=== PATIENT | female | born 1950 | race Two or more races ===

== ENCOUNTER 2021-03-30 12:15 | Inpatient (IN) | payer OTHER ==
[~2021-03-30] VITALS: Ht 154.9 cm; Wt 108.9 kg
[~2021-03-30 12:15] MED LIST: ALOPURINOL; CYMBALTA60 MG PO; DIOVAN320 MG PO; GABAPENTIN100 MG PO; GLUMETZA1000 MG PO; HUMALOG100 U/M1 SQ; OMEPRAZOLE40 MG PO; SIMCOR 500-201 EACH PO; SYNTHROID75 MCG PO; TOPROL XL100 M1 PO
[2021-03-30] MEDS ORDERED: LEVO-T75 MCG PO (14:19)
[2021-03-30] MEDS ORDERED: ISOSORBIDE DINI30 MG PO (14:20)
[2021-03-30] MEDS ORDERED: GABAPENTIN800 M1 PO (14:20)
[2021-03-30] MEDS ORDERED: TOPROL XL50 M1 PO (14:20)
[2021-03-30] MEDS ORDERED: XARELTO20 MG PO (14:21)
[2021-03-30] MEDS ORDERED: ALLOPURINOL300 MG PO (14:21)
[2021-03-30] MEDS ORDERED: LIPITOR40 M1 PO (14:22)
[2021-03-30] MEDS ORDERED: LANTUS SOL100 UNIT/1 (14:29)
[2021-03-30] MEDS ORDERED: ONGLYZA5 MG PO (14:29)
[2021-03-30] MEDS ORDERED: CLONAZEPAM0.5 MG PO (14:30)
[2021-04-04] MEDS ORDERED: NEURONTIN800 MG PO (14:05)
[2021-04-04] MEDS ORDERED: MEDROLPACK PO (14:05)
[2021-04-04] MEDS ORDERED: AMOX-CLAV 875-1 EACH PO (14:05)
[2021-04-04] MEDS ORDERED: PERCOCET 5-3251 EACH PO (14:05)
[2021-04-04] MEDS ORDERED: COLACE100 MG PO (14:06)
== END 2021-04-07 16:14 | DRG 454 ==
LOC: SURH 04-04 07:00 → PED 04-04 09:23 → O/R 04-04 09:23 → EDBD 04-04 09:23 → SURH 04-04 12:15 → EDBD 04-04 12:15 → PED 04-04 22:01
PROVIDERS: ADMIT Orthopaedic Surgery Orthopaedic Surgery of the Spine; ATTEND Orthopaedic Surgery Orthopaedic Surgery of the Spine
PROC: 0SG10J1 Fusion of 2 or more Lumbar Vertebral Joints with Synthetic Substitute, Posterior Approach, Posterior Column, Open Approach (ICD-10-PCS; 2021-04-04)
PROC: 0ST20ZZ Resection of Lumbar Vertebral Disc, Open Approach (ICD-10-PCS; 2021-04-04)
PROC: 0SG10AJ Fusion of 2 or more Lumbar Vertebral Joints with Interbody Fusion Device, Posterior Approach, Anterior Column, Open Approach (ICD-10-PCS; principal; 2021-04-04 07:00)
DX: M48.061 Spinal stenosis, lumbar region without neurogenic claudication (principal); M51.06 Intervertebral disc disorders with myelopathy, lumbar region; M51.16 Intervertebral disc disorders with radiculopathy, lumbar region; I10 Essential (primary) hypertension; Z20.822 Contact with and (suspected) exposure to COVID-19

== ENCOUNTER 2021-04-04 08:53 | Outpatient (CLI) | payer OTHER ==
[~2021-04-04 08:53] MED LIST changes: +ALLOPURINOL300 MG PO; +CLONAZEPAM0.5 MG PO; +GABAPENTIN800 M1 PO; +ISOSORBIDE DINI30 MG PO; +LANTUS SOL100 UNIT/1; +LEVO-T75 MCG PO; +LIPITOR40 M1 PO; +ONGLYZA5 MG PO; +TOPROL XL50 M1 PO; +XARELTO20 MG PO
[2021-04-04] MEDS ORDERED: MEDROLPACK PO (14:05)
[2021-04-04] MEDS ORDERED: PERCOCET 5-3251 EACH PO (14:05)
[2021-04-04] MEDS ORDERED: NEURONTIN800 MG PO (14:05)
[2021-04-04] MEDS ORDERED: AMOX-CLAV 875-1 EACH PO (14:05)
[2021-04-04] MEDS ORDERED: COLACE100 MG PO (14:06)
== END 2021-04-04 15:00 | disposition home or self-care (01) ==
LOC: LAB 08:53 → EDBD 08:53 → LAB 15:00
PROVIDERS: ATTEND Anesthesiology
DX: I10 Essential (primary) hypertension (principal); E11.9 Type 2 diabetes mellitus without complications; E03.8 Other specified hypothyroidism; E78.2 Mixed hyperlipidemia; Z12.11 Encounter for screening for malignant neoplasm of colon; E55.9 Vitamin D deficiency, unspecified